=== PATIENT | female | born 1970 | race Hispanic/Latino ===

== ENCOUNTER 2017-05-04 08:34 | Emergency (ER) | payer SELFPAY ==
[~2017-05-04] VITALS: Ht 154.9 cm; Wt 68.5 kg
[~2017-05-04 08:34] MED LIST: AMOXICILLIN250 MG PO; CIMETIDINE400 MG PO; METRONIDAZOLE500 MG PO; SUCRALFATE1 G/10 ML PO; [UNRECOGNIZED DRUG - OTHER] PO
== END 2017-05-04 09:47 | disposition left against medical advice (07) ==
LOC: ER 08:34
DX: R10.84 Generalized abdominal pain (principal)

== ENCOUNTER 2021-04-05 16:25 | Emergency (ER) | payer BC ==
[~2021-04-05] VITALS: Ht 154.9 cm; Wt 68.5 kg
[2021-04-05] MEDS ORDERED: KETOROLAC TROMETHAMINE 30 MG/ML VIAL IV STA (17:19)
[2021-04-05 17:46] LABS: BASOPHILS % 0.2 % (0.0-1.0); HEMATOCRIT 43.1 % (34.2-44.1); HEMOGLOBIN 14.2 g/dL (12.0-16.0); LYMPHOCYTES # (AUTO) 0.9 (1.0-3.2); LYMPHOCYTES % 10.7 % (18.0-39.1); MEAN CORPUSCULAR HEMOGLOBIN 30.5 pg (28-32); MEAN CORPUSCULAR HGB CONC 32.9 g/dL (31-35); MEAN CORPUSCULAR VOLUME 92.5 fL (81-99); MONOCYTES # (AUTO) 0.4 (0.2-0.8); NEUTROPHILS # (AUTO) 7.2 (2.1-6.9); NEUTROPHILS % 83.9 % (38.7-80.0); PLATELET COUNT 193 x10e3/uL (140-360); RED BLOOD COUNT 4.66 x10e6/uL (3.6-5.1)
[2021-04-05 18:03] LABS: ALBUMIN 4.4 g/dL (3.5-5.0); ANION GAP 14.5 mmol/L (8-16); CALCIUM 10.2 mg/dL (8.4-10.2); CREATININE, SERUM 0.77 mg/dL (0.57-1.11); POTASSIUM 3.5 mmol/L (3.5-5.1)
[2021-04-05] MEDS ORDERED: SODIUM CHLORIDE 0.9% 50ML 50 ML ONE (18:42)
[2021-04-05] MEDS ORDERED: IOPAMIDOL 370 MG/ML 200 ML INFUS..BTL INJ ONE (18:42)
[2021-04-05] MEDS ORDERED: LMX 45 G1 TOP (20:49)
[2021-04-05] MEDS ORDERED: ULTRAM50 MG PO (20:49)
[2021-04-05 23:16] VITALS: BP 132/83
== END 2021-04-05 21:05 | disposition home or self-care (01) ==
LOC: ER 16:36
DX: K62.89 Other specified diseases of anus and rectum (principal); G20 Parkinson's disease; M79.7 Fibromyalgia
CPT/HCPCS: 36415; 72193; 80053; 84702; 85025; 99284; J1885; Q9967

== ENCOUNTER → 2022-11-07 | Day surgery (SDC) | payer BC, OTHER ==
[~2022-11-07] MED LIST changes: +CALMOSEPTINE OI71 GM; +EMSAM; +FIBERCON625 MG PO; +GABAPENTIN300 MG/6 M PO; +LACTATED RINGER'S 1,000 ML ONE; +LIDOCAINE HCL 2% LOCAL INJ 5 ML SDV VIAL INJ ONE; +LINZESS145 MCG; +LMX 45 G1 TOP; +MIDAZOLAM HCL 2 MG/2 ML VIAL ONE; +MIRALAX17 GM PO; +PROPOFOL IV EMULSION 10 MG/ML 20 ML VIAL ONE; +PROTONIX20 MG PO; +ULTRAM50 MG PO
[2022-11-07 13:30] VITALS: TEMP 97.2
[2022-11-07 14:15] VITALS: BP 115/71; PULSE 78; RESP 17; O2SAT 99
== END | disposition home or self-care (01) ==
LOC: OR 10:09
PROVIDERS: ATTEND Internal Medicine Gastroenterology
DX: Z12.11 Encounter for screening for malignant neoplasm of colon (principal); D12.2 Benign neoplasm of ascending colon; K57.30 Diverticulosis of large intestine without perforation or abscess without bleeding; K58.9 Irritable bowel syndrome, unspecified; K62.89 Other specified diseases of anus and rectum; K62.5 Hemorrhage of anus and rectum; K59.00 Constipation, unspecified; K64.8 Other hemorrhoids; D18.03 Hemangioma of intra-abdominal structures; R19.8 Other specified symptoms and signs involving the digestive system and abdomen; K21.9 Gastro-esophageal reflux disease without esophagitis; E73.9 Lactose intolerance, unspecified; R74.8 Abnormal levels of other serum enzymes; R76.8 Other specified abnormal immunological findings in serum; G47.33 Obstructive sleep apnea (adult) (pediatric); G20 Parkinson's disease; R00.2 Palpitations; R03.0 Elevated blood-pressure reading, without diagnosis of hypertension; E78.5 Hyperlipidemia, unspecified; F41.9 Anxiety disorder, unspecified; F32.A Depression, unspecified; Z88.6 Allergy status to analgesic agent; Z88.0 Allergy status to penicillin; Z79.899 Other long term (current) drug therapy; Z86.19 Personal history of other infectious and parasitic diseases; Z68.31 Body mass index [BMI] 31.0-31.9, adult; Z86.16 Personal history of COVID-19
CPT/HCPCS: 45384; 93005; J2001; J2250; J2704; J7121; 45378

== ENCOUNTER → 2024-01-11 | Outpatient (REF) | payer OTHER ==
[~2024-01-11] MED LIST changes: +FENTANYL CITRATE/PF 100MCG/2 ML INJ ONE; +HYDROCODONE/APAP 5MG-325MG TAB ONE; +HYOSCYAMINE0.375 MG PO; -LACTATED RINGER'S 1,000 ML ONE; -LIDOCAINE HCL 2% LOCAL INJ 5 ML SDV VIAL INJ ONE; +NEURONTIN300 MG PO; +ONDANSETRON ODT4 MG PO; -PROPOFOL IV EMULSION 10 MG/ML 20 ML VIAL ONE; +SODIUM CHLORIDE 0.9% 250ML 250 ML ONE; +ULTRAM 50MG50 MG PO
[2024-01-11 09:29] LABS: BASOPHILS # (AUTO) 0.1 (0.0-0.1); BASOPHILS % 0.7 % (0.0-1.0); EOSINOPHILS # (AUTO) 0.1 (0.0-0.4); EOSINOPHILS % 0.7 % (0.0-6.0); HEMATOCRIT 44.3 % (34.2-44.1); HEMOGLOBIN 14.5 g/dL (12.0-16.0); LYMPHOCYTES # (AUTO) 3.2 (1.0-3.2); LYMPHOCYTES % 45.6 % (18.0-39.1); MEAN CORPUSCULAR HEMOGLOBIN 30.2 pg (28-32); MEAN CORPUSCULAR HGB CONC 32.7 g/dL (31-35); MEAN CORPUSCULAR VOLUME 92.3 fL (81-99); MONOCYTES # (AUTO) 0.5 (0.2-0.8); MONOCYTES % 7.1 % (4.4-11.3); NEUTROPHILS # (AUTO) 3.2 (2.1-6.9); NEUTROPHILS % 45.6 % (38.7-80.0); PLATELET COUNT 226 x10e3/uL (140-360); RED CELL DISTRIBUTION WIDTH 14.2 % (11.7-14.4); WHITE BLOOD COUNT 7.04 x10e3/uL (4.8-10.8)
[2024-01-11 09:40] LABS: INR 0.88; PROTHROMBIN TIME 12.4 seconds (11.9-14.5)
[2024-01-11 09:41] LABS: PARTIAL THROMBOPLASTIN TIME 34.3 seconds (23.8-35.5)
== END ==
LOC: US 09:07
PROVIDERS: ATTEND Internal Medicine Gastroenterology
DX: R74.8 Abnormal levels of other serum enzymes (principal)
CPT/HCPCS: 36415; 47000; 76942; 85025; 85610; 85730; 88305; 88342; J2250; J3010; J7050; 88307; 88313; 99152

== ENCOUNTER 2024-07-25 09:12 | Emergency (ER) | payer BC ==
[~2024-07-25] VITALS: Ht 152.4 cm; Wt 77.1 kg
[~2024-07-25 09:12] MED LIST changes: -FENTANYL CITRATE/PF 100MCG/2 ML INJ ONE; -HYDROCODONE/APAP 5MG-325MG TAB ONE; -MIDAZOLAM HCL 2 MG/2 ML VIAL ONE; -SODIUM CHLORIDE 0.9% 250ML 250 ML ONE
[2024-07-25 09:20] VITALS: PULSE 73; RESP 18; TEMP 97.7; O2SAT 99
[2024-07-25] MEDS: SODIUM CHLORIDE 0.9% 1000ML 1,000 ML IV STA (09:47)
[2024-07-25] MEDS: KETOROLAC TROMETHAMINE 30 MG/ML VIAL IV STA (09:47)
[2024-07-25] MEDS: ONDANSETRON HCL INJ 2MG/ML 2ML 2 MG/ML VIAL IV STA (09:47)
[2024-07-25 09:52] LABS: BASOPHILS % 0.4 % (0.0-1.0); EOSINOPHILS # (AUTO) 0.1 (0.0-0.4); HEMATOCRIT 42.9 % (34.2-44.1); HEMOGLOBIN 14.4 g/dL (12.0-16.0); LYMPHOCYTES # (AUTO) 3.5 (1.0-3.2); LYMPHOCYTES % 47.1 % (18.0-39.1); MEAN CORPUSCULAR HEMOGLOBIN 30.3 pg (28-32); MEAN CORPUSCULAR HGB CONC 33.6 g/dL (31-35); MEAN CORPUSCULAR VOLUME 90.1 fL (81-99); MONOCYTES # (AUTO) 0.5 (0.2-0.8); MONOCYTES % 7.1 % (4.4-11.3); NEUTROPHILS # (AUTO) 3.2 (2.1-6.9); NEUTROPHILS % 44.1 % (38.7-80.0); PLATELET COUNT 250 x10e3/uL (140-360); RED BLOOD COUNT 4.76 x10e6/uL (3.6-5.1); RED CELL DISTRIBUTION WIDTH 13.6 % (11.7-14.4); WHITE BLOOD COUNT 7.33 x10e3/uL (4.8-10.8)
[2024-07-25 10:05] LABS: ALANINE AMINOTRANSFERASE 18 IU/L (0-55); ALBUMIN 4.3 g/dL (3.5-5.0); ALKALINE PHOSPHATASE 115 IU/L (40-150); ANION GAP 13.8 mmol/L (8-16); BILIRUBIN,TOTAL 0.8 mg/dL (0.2-1.2); BLOOD UREA NITROGEN 14 mg/dL (7-26); BUN/CREATININE RATIO 17 (6-25); CALCIUM 9.7 mg/dL (8.4-10.2); CARBON DIOXIDE 25 mmol/L (22-29); CHLORIDE 105 mmol/L (98-107); CREATININE, SERUM 0.81 mg/dL (0.57-1.11); EST GLOMERULAR FILTRATION RATE 86 ML/MIN (>=60); GLUCOSE 108 mg/dL (74-118); LIPASE 24 U/L (8-78); MAGNESIUM 2.1 MG/DL (1.3-2.1); POTASSIUM 3.8 mmol/L (3.5-5.1); SODIUM 140 mmol/L (136-145); TOTAL PROTEIN 8.4 g/dL (6.5-8.1)
[2024-07-25 10:11] LABS: TROPONIN I < 0.001 ng/mL (0-0.300)
[2024-07-25] MEDS ORDERED: IOPAMIDOL 370 MG/ML 100 ML INFUS..BTL INJ ONE (10:22)
[2024-07-25 10:24] LABS: CLARITY,URINE CLOUDY (CLEAR); COLOR,URINE YELLOW (YELLOW); LEUKOCYTE ESTERASE ,URINE NEGATIVE (NEGATIVE); PH,URINE 7 (5 - 7)
[2024-07-25 10:25] LABS: AMPHETAMINES SCREEN,URINE NEGATIVE (NEGATIVE); BACTERIA,URINE FEW /HPF; BILIRUBIN,URINE NEGATIVE (NEGATIVE); EPITHELIAL CELLS,URINE MANY /LPF; GLUCOSE, URINE NEGATIVE (NEGATIVE); KETONES,URINE NEGATIVE (NEGATIVE); NITRITE,URINE NEGATIVE (NEGATIVE); OPIATES SCREEN,URINE NEGATIVE (NEGATIVE); PHENCYCLIDINE SCREEN,URINE NEGATIVE (NEGATIVE); PROTEIN,URINE DIPSTICK NEGATIVE (NEGATIVE); RBC,URINE 0-5 /HPF (0-5); URINE UROBILINOGEN 0.2 mg/dL (0.2 - 1); WBC,URINE (MAN) 0-5 /HPF (0-5)
[2024-07-25 10:26] LABS: BENZODIAZEPINES SCREEN,URINE NEGATIVE (NEGATIVE); CANNABINOIDS SCREEN,URINE NEGATIVE (NEGATIVE); COCAINE SCREEN,URINE NEGATIVE (NEGATIVE); METHADONE SCREEN, URINE NEGATIVE (NEGATIVE)
[2024-07-25] MEDS ORDERED: DICYCLOMINE HCL20 MG PO (11:13)
[2024-07-25 14:22] LABS: INR 0.94; PARTIAL THROMBOPLASTIN TIME 34.3 seconds (23.8-35.5); PROTHROMBIN TIME 13.2 seconds (11.9-14.5)
== END 2024-07-25 11:30 | disposition home or self-care (01) ==
LOC: ER 09:17
DX: R10.13 Epigastric pain (principal); K29.70 Gastritis, unspecified, without bleeding; R20.2 Paresthesia of skin; G20.A1 Parkinson's disease without dyskinesia, without mention of fluctuations; M06.9 Rheumatoid arthritis, unspecified; M79.7 Fibromyalgia; F41.9 Anxiety disorder, unspecified; R94.31 Abnormal electrocardiogram [ECG] [EKG]
CPT/HCPCS: 36415; 74177; 80053; 80307; 81001; 83690; 83735; 84484; 85025; 85610; 85730; 93005; 99284; J1885; J2405; J2470; J7030; Q9967

== ENCOUNTER 2024-12-07 09:58 | Emergency (ER) | payer BC ==
[~2024-12-07] VITALS: Ht 307.3 cm; Wt 77.1 kg
[~2024-12-07 09:58] MED LIST changes: +DICYCLOMINE HCL20 MG PO
[2024-12-07 10:11] VITALS: TEMP 98
[2024-12-07] MEDS: FLUORESCEIN SOD(OPTH) 1 MG STRP OP ONE (10:25)
[2024-12-07 10:34] VITALS: PULSE 76; RESP 16; O2SAT 95
[2024-12-07] MEDS ORDERED: POLYMYXIN B-TMP10 ML OS (10:40)
== END 2024-12-07 10:52 | disposition home or self-care (01) ==
LOC: ER 10:07
DX: H10.9 Unspecified conjunctivitis (principal); G20.A1 Parkinson's disease without dyskinesia, without mention of fluctuations; M06.9 Rheumatoid arthritis, unspecified; F41.9 Anxiety disorder, unspecified; G25.0 Essential tremor
CPT/HCPCS: 99283